=== PATIENT | female | born 1995 | race Native Hawaiian/Other Pacific Islander ===

== ENCOUNTER 2024-07-04 10:09 | Emergency (ER) | payer MEDICAID, SELFPAY ==
[2024-07-04 10:11] VITALS: BP 121/77; PULSE 88; RESP 19; TEMP 36.7; O2SAT 98; BMI 28.1
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
== END 2024-07-04 12:25 | disposition home or self-care (01) ==
PROVIDERS: Emergency Provider Emergency Medicine; PCP Physician Assistant
DX: S09.90XA Unspecified injury of head, initial encounter (principal); V89.9XXA Person injured in unspecified vehicle accident, initial encounter
CPT/HCPCS: 70450; 99284

== ENCOUNTER 2025-05-24 11:17 | Outpatient (AMB) | payer MEDICAID, SELFPAY ==
[2025-05-24 11:28] VITALS: BP 119/75; PULSE 85; RESP 17; TEMP 36.5; O2SAT 98; BMI 28.8
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
== END 2025-05-24 12:00 | disposition home or self-care (01) ==
LOC: HODSOBC 11:17
PROVIDERS: PCP Physician Assistant; Referring Provider Physician Assistant; Supervising Provider Obstetrics & Gynecology; Visit Provider Obstetrics & Gynecology
DX: O09.891 Supervision of other high risk pregnancies, first trimester (principal); O26.841 Uterine size-date discrepancy, first trimester; O09.291 Supervision of pregnancy with other poor reproductive or obstetric history, first trimester; O34.219 Maternal care for unspecified type scar from previous cesarean delivery; Z3A.13 13 weeks gestation of pregnancy; Z86.32 Personal history of gestational diabetes
CPT/HCPCS: 99214; G0463

== ENCOUNTER → 2025-05-30 | Outpatient (CLI) | payer MEDICAID, SELFPAY ==
--- NOTE | 2025-05-30 10:01 | XR_ITS ---
Examination: Complete OB ultrasound, less than 14 weeks, transabdominal Date and time of exam: May 30, 2025, 10:00 a.m. INDICATIONS: Unknown size and dates Technique: Obstetrical ultrasound images less than 14 weeks performed via transabdominal imaging Findings: A normal shaped single intrauterine gestation is present in the uterus. CRL 6.9 cm corresponds to 13 weeks 1 day gestational age Cardiac motion 169 bpm Ultrasonographic survey of visible and placental structures unremarkable. Amniotic fluid volume appears appropriate for this estimated gestational age. Right ovary 2.6 cm arterial flow. Left ovary 2.6 cm arterial flow IMPRESSION: Viable intrauterine gestation 13 weeks 1 day.
== END | disposition home or self-care (01) ==
LOC: CDIM 09:52
PROVIDERS: PCP Physician Assistant; Referring Provider Obstetrics & Gynecology; Visit Provider Obstetrics & Gynecology
DX: O26.849 Uterine size-date discrepancy, unspecified trimester (principal); Z3A.13 13 weeks gestation of pregnancy
CPT/HCPCS: 76801

== ENCOUNTER 2025-07-13 01:17 | Emergency (ER) | payer MEDICAID, SELFPAY ==
[2025-07-13 01:25] VITALS: BP 121/73; PULSE 74; RESP 16; TEMP 36.4; O2SAT 96
[2025-07-13 01:27] VITALS: BMI 29.9
[2025-07-13] MEDS: FAMOTIDINE 20 MG TABLET 40 MG PO (01:48)
[2025-07-13] MEDS: METOCLOPRAMIDE 5 MG TABLET 10 MG PO (01:49)
[2025-07-13] MEDS: MG HYD/AL HYD/SIME (Maalox Reg) SUSP 30 ML UDC PO (01:49)
--- NOTE | 2025-07-13 01:54 | PD.EDABDPN ---
ED Abdominal Pain RME/HPI General Chief Complaint: Abdominal Pain Stated complaint: ABD PAIN Time seen by provider: 07/13/25 01:41 Arrival date/time: 07/13/25 01:17 29F with no significant PMH presents to ED with 1 hour of epigastric pain and mild N/V. Patient states symptoms got better while walking around. Patient is 19 weeks , but denies vaginal bleeding. Limitations: no limitations Related Data Previous Rx's ?Medication ?Instructions ?Recorded vits no.126-ferrous fum 1 tab PO QDAY 90 days #90 tabs 05/24/25 28 mg iron-folic acid 800 mcg tablet (Classic ) Allergies Allergy/AdvReac Type Severity Reaction Status Date / Time No Known Allergies Allergy Verified 07/13/25 01:25 Review of Systems Review of Systems Systems Reviewed: All systems reviewed, normal except as documented Gastrointestinal Gastrointestinal: Reports as per HPI, Reports nausea and Reports vomiting Past Medical History Past Medical History NEUROLOGIC: Negative Neurological Disorders CARDIAC: Negative Cardiac Disorders or Congestive Heart Failure RESPIRATORY: Negative Chronic Obstructive Pulmonary Disease (COPD) GASTROINTESTINAL: Negative Gastrointestinal Disorders GENITOURINARY: Negative Genitourinary Disorders or Renal Disease REPRODUCTIVE: Negative Breast Cancer MUSCULOSKELETAL: Negative Musculoskeletal Disorders ENDOCRINE: Negative Endocrine Disorders, Diabetes Mellitus Type 1 or Diabetes Mellitus Type 2 HEMATOLOGIC: Negative Blood Disorders OTHER HISTORY: Negative Autoimmune Disease, Blood Transfusions, Blood Transfusion Reaction, Anesthesia Reactions, Organ Transplant, MRSA, Clostridium Difficile or Breast Cancer Family History FAMILY HISTORY: Negative Family Psychiatric Problems, Family Respiratory Disorders, Family Cardiac Disorders, Family Gastrointestinal Problems, Family Cancer, Family Surgery or Family Anesthesia Reaction Surgical History SURGICAL: Negative Section or Organ Transplant Social History SMOKING STATUS: Never smoker SECOND HAND EXPOSURE: No ED Exam General Limitations: Present no limitations General appearance: Present alert and in no apparent distress Head Head exam: Present atraumatic Neck Neck exam: Present normal inspection, full ROM and trachea midline Chest Chest inspection: Present normal inspection and symmetric chest wall rise Abdominal Exam Abdominal exam: Present soft; Absent tenderness Neurological Exam Neurological exam: Present alert and oriented X3 Psychiatric Psychiatric exam: Present normal affect and normal mood Skin Skin exam: Present warm, dry, intact and normal color Course Quality Measures none Orders Category Date Time Status Famotidine [Pepcid] Med 07/13/25 01:43 Discontinued 40 mg PO X1 ONE Metoclopramide [Reglan] Med 07/13/25 01:43 Discontinued 10 mg PO X1 ONE mg Hyd/Al Hyd/Sherrie Susp [Maalox Susp] Med 07/13/25 01:43 Discontinued 30 ml PO X1 ONE Vital Signs Vital signs: Vital Signs Temperature 97.6 F 07/13/25 01:25 Pulse Rate 74 07/13/25 01:25 Respiratory Rate 16 07/13/25 01:25 Blood Pressure 121/73 07/13/25 01:25 Pulse Oximetry (%) 96 07/13/25 01:25 Oxygen Delivery Method Room Air 07/13/25 01:25 O2 at 96% on RA and WNLs Abdominal Pain MDM MDM Narrative MDM Narrative:: 29F with no significant PMH presents to ED with 1 hour of epigastric pain and mild N/V. Patient states symptoms got better while walking around. Patient is 19 weeks , but denies vaginal bleeding. Physical exam reveals no ab tenderness. Normal WOB. Patient is afebrile, calm, and alert. Meds and academic counselor given. Patient does not want to wait for observation period. Patient data External records reviewed:: [facility] [place] previous records Clinical information provided by:: patient Social determinants that could affect healthcare access:: none Patient has the following chronic illnesses:: none How is presenting disease/condition affected by chronic disease/condition?: no chronic disease Evaluation data The following diagnostics were reviewed and interpreted by me:: other (specify) (none) Lab and/or radiology exams considered but not ordered:: not ordered Interpretation Summary: n/a Medications / Prescriptions Medications or Prescriptions considered but not ordered:: ordered Medication administrations:: Medication Administration History Discontinued Medications Al Hydrox/Mg Hydrox/Simethicone (Mg Hyd/Al Hyd/Sherrie (Maalox Reg) Susp 30 Ml Udc) 30 ml PO X1 ONE Stop: 07/13/25 01:44 Last Admin: 07/13/25 01:49 Dose: 30 ml Documented By: OA Famotidine (Famotidine 20 Mg Tablet) 40 mg PO X1 ONE Stop: 07/13/25 01:44 Last Admin: 07/13/25 01:48 Dose: 40 mg Documented By: OA Metoclopramide HCl (Metoclopramide 5 Mg Tablet) 10 mg PO X1 ONE Stop: 07/13/25 01:44 Last Admin: 07/13/25 01:49 Dose: 10 mg Documented By: OA above Consultations Consultation(s) initiated? (list below): No Diagnosis Differential diagnosis abdominal pain: abdominal pain, acute appendicitis, calculus of kidney, constipation, diverticulitis, endometriosis, gastroenteritis, pancreatitis, small bowel obstruction and other (gastritis, miscarriage) Most likely diagnosis given after review of the tests above:: gastritis and ab pain Admission Indicated Admission indicated?: not indicated Admission Request Was there a request for admission?: No Disposition Plan Disposition Plan: Discharge Discharge Attestation Discharge Attestation: The patient and all family members were given an opportunity to ask questions and understood the discharge instructions. Discharge instructions specifically effects, indications for sooner follow up or return to the emergency department, and the expected course of current diagnosis. Patient condition: Stable Discharge Plan Plan Patient Disposition: HOME (Self Care) Discharge Disposition comment: Stable Prescriptions/Referrals Prescriptions/Med Rec: No Action Classic 28 mg iron- 800 mcg tablet 1 tab PO QDAY 90 Days Qty: 90 8RF Problem List Clinical Impression: Abdominal pain, Gastritis Patient/Caregiver Discharge Instructions Education Materials: Abdominal Pain, ED Gastritis (Adult) Additional Instructions: Please follow-up with PCP within 24-48 hours and return immediately if symptoms worsen. Keep hydrated. Advance diet as tolerated. Print Language: Vincentian Stand Alone Forms: Patient Portal Info Letter MASTER/SHELLY Supervising Physician MASTER/SHELLY Supervising Physician: Dr. Kendall
== END 2025-07-13 01:52 | disposition home or self-care (01) ==
PROVIDERS: Emergency Provider Emergency Medicine; PCP Physician Assistant
DX: O99.612 Diseases of the digestive system complicating pregnancy, second trimester (principal); K29.70 Gastritis, unspecified, without bleeding; Z3A.19 19 weeks gestation of pregnancy
CPT/HCPCS: 99281; A9270

== ENCOUNTER 2025-07-18 13:02 | Outpatient (AMB) | payer MEDICAID, SELFPAY ==
[2025-07-18 13:06] VITALS: BP 124/84; PULSE 84; RESP 16; TEMP 36.3; O2SAT 98; BMI 29.7
--- NOTE | 2025-07-18 13:06 | OBCLNT_ITS ---
Vital Signs 07/18/25 13:06 Height 1.52 m Height Method Stated Weight 69.059 kg Weight Measurement Method Standing Scale BMI 29.7 BP 124/84 Blood Pressure Source Automatic Cuff Blood Pressure Location Left Upper Arm Position Sitting Respiration 16 Pulse 84 Pulse Source Monitor Temp 97.4 F Temp Source Oral Pulse Oximetry (%) 98 Oxygen Delivery Method Room Air Allergies/Home Meds Allergies & Medications Allergies No Known Allergies Allergy (Verified 07/18/25 13:07) Medication Reconciliation vits no.126-ferrous fum 28 mg iron-folic acid 800 mcg tablet (Classic ) 1 tab PO QDAY 90 days #90 tabs 05/24/25 [Rx Confirmed 07/18/25] Immunizations Immunizations Flu Vaccine in the Last 12 Months: Yes Flu Vaccine Exclusion Criteria: Already Received Care OB Visit Log OB Flowsheet Initial Weight: Not Recorded Date -?-?-?-?-?-?-?-?-?-?-?-?- EGA Weight BP Alb Glu CTX Pres Fundal ht FHR Mov Dilation Station Effacement Hx Notes Visit Note 05/24/25 -?-?-?-?-?-?-?-?-?-?-?-?- 13w 0d 66.848 kg 119/75 158 - Farhat Ramon presents for her first visit for her third . - Her last menstrual period was February 22 , which she tracks for mental health purposes. - She reports this is her longest wait f or a first visit. - She has two previous children, ages 7 and 3, both delivered via section. - First was performed by Dr. Reyes at [place]. - Second was performed by Dr. Forde after she was in active labor and initially planned to attempt a , but nurses convinced her not to proceed with vaginal delivery. - She had gestational diabetes with her first but not with her second . - She denies diabetes or high blood pres sure in her last two pregnancies beyond the gestational diabetes in the first . - She needs a prescription for vitamins. - Obtain formal ultrasound in ultrasound office for better imaging and accurate dating - Draw blood work including genetic test ing and gender determination - Prescribe vitamins - Follow up in couple of weeks with resu lts - Monitor for gestational diabetes given history in first - Dietary counseling to avoid high glyce brandon foods, sugars, fried foods, and bakery products 07/18/25 -?-?-?-?-?-?-?-?-?-?-?-?- 20w 6d 69.059 kg 124/84 165 - She was seen in the emergency department yesterday with epigastric pain. - Patient had an ultrasound on May 18 measuring 10 weeks, 3 days, giving an estimated due date of January 05, 2026. - She has stopped smoking cigarettes sin ce becoming . - She has stopped drinking alcohol since becoming . - She has also stopped taking THC since becoming . - Patient does not want to go to [place] to see Doctor Lemon for care. - She is pending an appointment with [facility] after being referred. - Patient referr ed to Maternal and Medicine with pending appointment - Patient to continue avoiding smoking c igarettes, alcohol, and THC during VERONICA Calculator Estimated Delivery Date Method Current WG Current Estimate 11/29/25 LMP (Certain) 24w 5d Notes Visit Date: 07/18/25 Last Updated by: Rashid Atkins MD Laboratory, Imaging, and Diagnostic Test Results - laboratory panel: - Hepatitis B: negative - Hepatitis C: negative - RPR: non-reactive - Rubella: immune - Blood group: B, Rh-positive - Antibody screen: negative - HIV: negative - Gonorrhea/Chlamydia: negative - Hemoglobin: 12.5 g/dL - Urinalysis: glucose and ketones present - NIPT (Non-Invasive Testing): negative, female gender - Ultrasound (June 12): measured 10 weeks, 3 days gestation, EDC January 05, 2026 Office Procedures OBC Clinic LOC & Office Proc's Nursing/Assessment Patient Status: Established Patient OB Clinic Nursing Assessment: Medication Reconciliation, Update PMH in EMR and Vital Signs OB Clinic Coordination of Care: Complex Care and Chronic Disease 1-5, Consent,records obtained, informed consent, Education Simp Pt/Fam, 1 Ins Authorization, Lab and Imaging orders, Results/Orders obtained and Staff clarify orders Special Needs: Heart tones Established Patient Charge Established Patient Point Assignment: 150 Established Patient Point Charge: EP Level 4 (120-155) Assessment & Plan Diagnosis / Problem List (1) Supervision of high risk , unspecified, first trimester: Status: Acute (2) Uterine size date discrepancy: Status: Acute Plan Problem List - Epigastric pain - at 20 weeks 6 days Assessment 41-year-old 3 patient at 20 weeks 6 days gestation with estimated due date of January 05, 2026, presenting for appointment with recent epigastric pain requiring emergency department evaluation yesterday. Patient has BMI of 48 and has made positive lifestyle modifications including cessation of smoking, alcohol, and THC use since . Laboratory results show hemoglobin 12.5, hepatitis B and C negative, RPR non-reactive, rubella immune, blood type B Rh-positive with negative antibody screen, HIV negative, gonorrhea and chlamydia negative, with trace glucose and ketones in urine. NIPT results negative for chromosomal abnormalities with female fetus identified. Patient has been referred to Maternal Medicine with appointment pending. Plan - Patient referred to Maternal and Medicine with pending appointment - Patient to continue avoiding smoking cigarettes, alcohol, and THC during 1. Progress Reviewed gestational age, growth, and heart rate. Planned frequent visits (every 2 weeks until 36 weeks, then weekly). 2. Instructed patient to monitor movements and report decreases immediately. 3. Testing Counseled on routine third-trimester labs per guidelines. Discussed potential need for ultrasound or monitoring based on risk factors. 4. Preeclampsia Precaution Educated on preeclampsia signs: severe headache, vision changes, right upper quadrant pain, sudden swelling. Advised urgent reporting of symptoms and discussed blood pressure monitoring if high risk. 5. Labor Precautions Reviewed labor signs: regular contractions, pelvic pressure, back pain, bleeding, or fluid leakage. Instructed to seek immediate care for these symptoms. 6. Lifestyle and Delivery Preparation Reinforced vitamins, nutrition, and safe activity. Discussed plan, pain management, and . Advised on labor preparation (e.g., hospital bag) and expectations. 7. Psychosocial Support Assessed emotional well-being and offered resources for mental health or parenting support.
== END 2025-07-18 13:27 | disposition home or self-care (01) ==
LOC: HODSOBC 13:02
PROVIDERS: PCP Physician Assistant; Referring Provider Physician Assistant; Supervising Provider Obstetrics & Gynecology; Visit Provider Obstetrics & Gynecology
DX: O09.892 Supervision of other high risk pregnancies, second trimester (principal); O26.842 Uterine size-date discrepancy, second trimester; Z3A.20 20 weeks gestation of pregnancy; Z87.891 Personal history of nicotine dependence
CPT/HCPCS: 99214; G0463

== ENCOUNTER 2025-08-15 10:06 | Outpatient (AMB) | payer MEDICAID, SELFPAY ==
[2025-08-15 10:14] VITALS: BP 109/65; PULSE 85; RESP 18; TEMP 36.2; O2SAT 98; BMI 30.5
--- NOTE | 2025-08-15 10:14 | OBCLNT_ITS ---
Vital Signs 08/15/25 10:14 Height 1.52 m Height Method Stated Weight 70.534 kg Weight Measurement Method Standing Scale BMI 30.5 BP 109/65 Blood Pressure Source Automatic Cuff Blood Pressure Location Left Upper Arm Position Sitting Respiration 18 Pulse 85 Pulse Source Monitor Temp 97.2 F Temp Source Oral Pulse Oximetry (%) 98 Oxygen Delivery Method Room Air Allergies/Home Meds Allergies & Medications Allergies No Known Allergies Allergy (Verified 08/15/25 10:15) Medication Reconciliation vits no.126-ferrous fum 28 mg iron-folic acid 800 mcg tablet (Classic ) 1 tab PO QDAY 90 days #90 tabs 05/24/25 [Rx Confirmed 08/15/25] Immunizations Immunizations Flu Vaccine in the Last 12 Months: Yes Flu Vaccine Exclusion Criteria: Already Received Care OB Visit Log OB Flowsheet Initial Weight: Not Recorded Date -?-?-?-?-?-?-?-?-?-?-?-?- EGA Weight BP Alb Glu CTX Pres Fundal ht FHR Mov Dilation Station Effacement Hx Notes Visit Note 05/24/25 -?-?-?-?-?-?-?-?-?-?-?-?- 13w 0d 66.848 kg 119/75 158 - Farhat Ramon presents for her first visit for her third . - Her last menstrual period was February 22 , which she tracks for mental health purposes. - She reports this is her longest wait f or a first visit. - She has two previous children, ages 7 and 3, both delivered via section. - First was performed by Dr. Reyes at [place]. - Second was performed by Dr. Forde after she was in active labor and initially planned to attempt a , but nurses convinced her not to proceed with vaginal delivery. - She had gestational diabetes with her first but not with her second . - She denies diabetes or high blood pres sure in her last two pregnancies beyond the gestational diabetes in the first . - She needs a prescription for vitamins. - Obtain formal ultrasound in ultrasound office for better imaging and accurate dating - Draw blood work including genetic test ing and gender determination - Prescribe vitamins - Follow up in couple of weeks with resu lts - Monitor for gestational diabetes given history in first - Dietary counseling to avoid high glyce brandon foods, sugars, fried foods, and bakery products 07/18/25 -?-?-?-?-?-?-?-?-?-?-?-?- 20w 6d 69.059 kg 124/84 165 - She was seen in the emergency department yesterday with epigastric pain. - Patient had an ultrasound on May 18 measuring 10 weeks, 3 days, giving an estimated due date of January 05, 2026. - She has stopped smoking cigarettes sin ce becoming . - She has stopped drinking alcohol since becoming . - She has also stopped taking THC since becoming . - Patient does not want to go to [place] to see Doctor Lemon for care. - She is pending an appointment with [facility] after being referred. - Patient referr ed to Maternal and Medicine with pending appointment - Patient to continue avoiding smoking c igarettes, alcohol, and THC during 08/15/25 -?-?-?-?-?-?-?-?-?-?-?-?- 24w 6d 70.534 kg 109/65 absent cephalic 25 145 active - She reports very active movement, which she describes as a good sign. - Patient complains of severe heartburn that has been ongoing since her last visit. - Currently taking a white, milky liqu id antacid medication for symptom relief - Describes it as really bad heartbur n - She has been waiting for her maternal- medicine ultrasound appointment since referral was sent in May. - Has not yet received a call to sched ule the appointment - Reports the specialist office indica amy they are behind due to a backlog - Patient denies having diabetes based on recent glucose screening results. - Prescribe omeprazole for heartburn management - Follow up in 4 weeks - Patient to contact maternal- medi cine (Dr. Perkins) weekly regarding pending ultrasound appointment - Continue dietary modifications avoidin g unhealthy foods VERONICA Calculator Estimated Delivery Date Method Current WG Current Estimate 11/29/25 LMP (Certain) 24w 6d Notes Visit Date: 07/18/25 Last Updated by: Rashid Atkins MD Laboratory, Imaging, and Diagnostic Test Results - laboratory panel: - Hepatitis B: negative - Hepatitis C: negative - RPR: non-reactive - Rubella: immune - Blood group: B, Rh-positive - Antibody screen: negative - HIV: negative - Gonorrhea/Chlamydia: negative - Hemoglobin: 12.5 g/dL - Urinalysis: glucose and ketones present - NIPT (Non-Invasive Testing): negative, female gender - Ultrasound (June 12): measured 10 weeks, 3 days gestation, EDC January 05, 2026 Office Procedures OBC Clinic LOC & Office Proc's Nursing/Assessment Patient Status: Established Patient OB Clinic Nursing Assessment: Medication Reconciliation, Update PMH in EMR and Vital Signs OB Clinic Coordination of Care: Complex Care and Chronic Disease 1-5, Consent,records obtained, informed consent, Education Simp Pt/Fam, Lab and Imaging orders, Results/Orders obtained and Staff clarify orders Special Needs: Heart tones Established Patient Charge Established Patient Point Assignment: 135 Established Patient Point Charge: EP Level 4 (120-155) Assessment & Plan Diagnosis / Problem List (1) Supervision of high risk , unspecified, first trimester: Status: Acute (2) Uterine size date discrepancy: Status: Acute Plan Problem List - at 20 weeks 6 days gestation - Obesity - Epigastric pain - Heartburn - History of delivery Assessment 41-year-old 3 para 2 at 20 weeks 6 days gestation with BMI of 48 presenting for routine care. Patient reports severe heartburn symptoms that are persistent and bothersome. One-hour glucose screening test result is 132 mg/dL, which is below the cutoff of 139 mg/dL indicating normal glucose tolerance. heart rate is 146 bpm, which is within normal limits. Patient reports increased movement. Patient has been referred to maternal- medicine for high-risk management but has not yet been scheduled for specialized ultrasound evaluation due to scheduling delays at the specialist office. Plan - Prescribe omeprazole for heartburn management - Follow up in 4 weeks - Patient to contact maternal- medicine (Dr. Perkins) weekly regarding pending ultrasound appointment - Continue dietary modifications avoiding unhealthy foods 1. Progress Reviewed gestational age at 20 weeks 6 days, growth, and heart rate of 146 bpm which is normal. Planned frequent visits (every 4 weeks). 2. Instructed patient to monitor movements and report decreases immediately. 3. Testing Counseled on routine third-trimester labs per guidelines. Discussed potential need for ultrasound or monitoring based on risk factors including referral to maternal- medicine specialist. 4. Preeclampsia Precaution Educated on preeclampsia signs: severe headache, vision changes, right upper quadrant pain, sudden swelling. Advised urgent reporting of symptoms and discussed blood pressure monitoring if high risk. 5. Labor Precautions Reviewed labor signs: regular contractions, pelvic pressure, back pain, bleeding, or fluid leakage. Instructed to seek immediate care for these symptoms. 6. Lifestyle and Delivery Preparation Reinforced vitamins, nutrition, and safe activity with dietary counseling to avoid unhealthy foods. Discussed plan, pain management, and . Advised on labor preparation (e.g., hospital bag) and expectations. 7. Psychosocial Support Assessed emotional well-being and offered resources for mental health or parenting support.
== END 2025-08-15 10:36 | disposition home or self-care (01) ==
LOC: HODSOBC 10:06
PROVIDERS: Supervising Provider Obstetrics & Gynecology; Visit Provider Obstetrics & Gynecology
DX: O09.892 Supervision of other high risk pregnancies, second trimester (principal); O26.842 Uterine size-date discrepancy, second trimester; O09.292 Supervision of pregnancy with other poor reproductive or obstetric history, second trimester; O34.219 Maternal care for unspecified type scar from previous cesarean delivery; O99.212 Obesity complicating pregnancy, second trimester; O99.891 Other specified diseases and conditions complicating pregnancy; R10.13 Epigastric pain; R12 Heartburn; Z3A.24 24 weeks gestation of pregnancy
CPT/HCPCS: 99214; G0463